=== PATIENT | male | born 2000 | race African-American/Black ===

== ENCOUNTER 2024-08-21 06:13 | Emergency (ER) | payer BC, OTHER ==
[~2024-08-21] VITALS: Ht 170.2 cm; Wt 91.1 kg
--- NOTE | 2024-08-21 07:04 | ED.PDOC ---
Foreign Body HPI Comments 23-year-old male patient presents to the ER for a contact lens that is stuck in the left eye. Patient reports in place the contact lens in 1 hour ago and is unable to remove it. Patient reports mild pain. Patient reports that he did try to flush his eye out to remove the contact but was unable to do so. Patient denies any visual changes. Chief Complaint: Foreign Body Time Seen by MD: 06:50 Allergies: Coded Allergies: NO KNOWN ALLERGIES (Unverified , 08/21/24) Home Meds Active Scripts Gentamicin Sulfate (Gentamicin Sulfate) 0.3 % Danielle, 2 DROP LEFTEYE Q4HR for 7 Days, #5 ML 0 Refills Prov:BREANNA HORN INFANT BABYSITTER 08/21/24 Information Source: Patient Mode of Arrival: Ambulatory Past Medical History PAST MEDICAL HISTORY: Denies Surgical History: Denies all surgeries Family History Family History: Reviewed,noncontributory to illness, No family hx of Cancer, No family hx of DM, No family hx of Heart geeta, No family hx of HTN, No family hx ofKidney geeta, No family hx of Liver geeta, No family hx of Lung geeta, No family hx of Stroke Constitutional: denies: chills, diaphoresis, fatigue, fever, malaise, sweats, weakness, others EENTM: reports: eye pain, others (Contact lens visible in the left eye with blue tint) Respiratory: denies: cough, hemoptysis, orthopnea, SOB at rest, shortness of breath, SOB with excertion, stridor, wheezing, others Cardiovascular: denies: chest pain, dizzy spells, diaphoresis, Dyspnea on exertion, edema, irregular heart beat, left arm pain, lightheadedness, palpitat ions, PND, syncope, others Gastrointestinal: denies: abdomen distended, abdominal pain, blood streaked bow els, constipated, diarrhea, dysphagia, difficulty swallowing, hematemesis, melena, nausea, poor appetite, poor fluid intake, rectal bleeding, rectal pain, vomiting, others Genitourinary: denies: burning, dysuria, flank pain, frequency, hematuria, incontinence, penile discharge, penile sore, pain, testicle pain, testicle swelling, urgency, others Neurological: denies: dizziness, fainting, headache, left sided numbness, left sided weakness, numbness, paresthesia, pre-existing deficit, right sided numbness, right sided weakness, seizure, speech problems, tingling, tremors, weakness, others Musculoskeletal: denies: back pain, gout, joint pain, joint swelling, muscle pain, muscle stiffness, neck pain, others Integumetry: denies: bruises, change in color, change in hair/nails, dryness, laceration, lesions, lumps, rash, wounds, others Allergic/Immunocompromised: denies: Difficulty Healing, Frequent Infections, Hives, Itching, others Hematologic/Lymphatic: denies: anemia, blood clots, easy bleeding, easy bruising, swollen glands, others Endocrine: denies: excessive hunger, excessive sweating, excessive thirst, excessive urination, flushing, intolerance to cold, intolerance to heat, unexplained weight gain, unexplained weight loss, others Psychiatric: denies: anxiety, bipolar disorder, depression, hopeless, panic disorder, schizophrenia, sleepless, suicidal, others All Other Systems: Reviewed and Negative Physical Exam General Appearance: No Apparent Distress, Normal HEENT: Cornea (L), Eye Lid (L), Pharynx Normal, TMs Normal, Other (Blue tinted contact lens physical in the left eye near the outer canthus) Neck: Full Range of Motion, Non-Tender, Normal, Normal Inspection Respiratory: Chest Non-Tender, Lungs Clear, No Accessory Muscle Use, No Respiratory Distress, Normal Breath Sounds Cardiovascular: No Edema, No JVD, No Murmur, No Gallop, Normal Peripheral Pulses, Regular Rate/Rhythm Breast Exam: Deferred Gastrointestinal: No Organomegaly, Non Tender, No Pulsatile Mass, Normal Bowel Sounds, Soft Genitalia: Deferred Pelvic: Deferred Rectal: Deferred Extremities: No calf tenderness, Normal capillary refill, Normal inspection, Normal range of motion, Non-tender, No pedal edema Neurologic: Alert, special education coordinator II-XII nml as Tested, No Motor Deficits, Normal Affect, Normal Mood, No Sensory Deficits Cerebellar Function: Normal Reflexes: Normal Skin: Dry, Normal Color, Warm Lymphatic: No Adenopathy Was a procedure done? Was a procedure done?: Yes Sedation Sedation?: No Foreign Body Removal Foreign body in: Eye Anesthetic: Other (Tetracaine) Prep: Prep Procedure: Removed Informed consent obtained: Yes Risks/benefits/alt described: Yes Other Procedure Procedure I examined using fluorescein and Wood's lamp FB Differential Dx Differential Diagnosis: Abrasion, Foreign Body X-Ray, Labs, Meds, VS Vital Signs Date Time Temp Pulse Resp B/P (MAP) Pulse Ox O2 Delivery O2 Flow Rate FiO2 08/21/24 07:40 98.7 88 17 110/78 (89) 97 98.7 08/21/24 06:57 83 18 98 Room Air 08/21/24 06:25 98.3 83 18 103/79 (87) 98 X-Ray, Labs, Meds, VS Comment Fluorescein, tetracaine and Wood's lamp used for an exam with on the eye to rule out abrasion. Contact lens removed from the left given to patient On re-evaluation patient has symptomatic improvement. Patient is stable for discharge at this time. All test results and diagnostic imaging have been interpreted. All diagnostic findings, discharge care, and education instruction provided to the patient. Follow-up with PCP in 2-3 days Patient verbalized understanding, discharge instructions and agrees to treatment plan Vital signs are stable Patient is ambulatory Patient advised of which symptoms necessitate a return visit to the emergency room. Patient to return emergency room for any new worsening symptoms. Patient is aware that the purpose of this visit is for an acute medical emergency requiring emergent stabilization. Chronic conditions, including malignancies have not been ruled out. Patient is instructed to follow up with PCP as directed for continued care and workup. If unable to arrange follow up, patient is to return to the emergency room for reassessment. Patient was given verbal and written discharge instructions and acknowledges understanding Time of 1ST Reevaluation: 07:32 Reevaluation 1ST: Improved Patient Education/Counseling: Diagnosis, Treatment, Prognosis Family Education/Counseling: No Family Present Departure 1 Departure Time of Disposition: 07:20 Impression: Primary Impression: Eye foreign body Qualified Codes: T15.92XA - Foreign body on external eye, part unspecified, left eye, initial encounter Additional Impression: Eye abrasion Qualified Codes: S05.8X2A - Other injuries of left eye and orbit, initial encounter Disposition: HOME / SELF CARE / HOMELESS Condition: Stable e-Prescriptions Gentamicin Sulfate (Gentamicin Sulfate) 0.3 % Danielle 2 DROP LEFTEYE Q4HR for 7 Days, #5 ML 0 Refills Prov: BREANNA HORN INFANT BABYSITTER 08/21/24 Discharged With: Self Critical Care Note Critical Care Time?: No Stability Stability form required: No Heart Score Heart Score: Heart Score Response (Comments) Value History N/A 0 EKG N/A 0 Age N/A 0 Risk Factors N/A 0 Troponin N/A 0 Total 0 BREANNA HORN [facility] Aug 21, 2024 07:04
[2024-08-21] MEDS: TETRACAINE HCL 0.5% OPTH(EYE) SOLN 4ML LEFTEYE ONE (07:20)
[2024-08-21] MEDS: FLUORESCEIN SOD OPTH TEST STRIP LEFTEYE ONE (07:20)
[2024-08-21] MEDS ORDERED: GENT0.3S10 LEFTEYE (07:31)
[2024-08-21 07:40] VITALS: BP 110/78; PULSE 88; RESP 17; TEMP 98.7; O2SAT 97
== END 2024-08-21 07:42 | disposition home or self-care (01) ==
LOC: ER 06:13
DX: T15.92XA Foreign body on external eye, part unspecified, left eye, initial encounter (principal); W44.8XXA Other foreign body entering into or through a natural orifice, initial encounter; Y93.89 Activity, other specified; Y92.89 Other specified places as the place of occurrence of the external cause; Y99.8 Other external cause status